=== PATIENT | female | born 1935 | race Caucasian/White ===

== ENCOUNTER → 2017-08-07 | Outpatient (CLI) | payer MEDICARE, OTHER ==
[~2017-08-07] MED LIST: ALLER-TEC D 5-1 EACH PO; ASPI81CH PO; ATOR40TA PO; Alaway10 ML; Bentyl20 MG PO; CETI10 PO; CETI5 PO; CHOL10002 PO; ESOM20 PO; FISH1000 PO; LISHYD2012 PO; LOPE2C PO; MULVITMINF PO; OMEP40CA12 PO; PROP30DR; PROP30DR OP; ROSU10TA PO; SIME40L
[2017-08-07 08:58] LABS: Source, Urine Clean Catch
[2017-08-07 10:03] LABS: Bilirubin, Urine Neg (Neg); Blood, Urine Neg (Neg); Glucose Qualitative, Urine Neg (Neg); Ketones, Urine Neg (Neg); Leukocyte Esterase, Urine 1+ (Neg); Nitrite, Urine Neg (Neg); Protein, Urine Neg (Neg); Urobilinogen, Urine NORM (Normal)
[2017-08-07 10:35] LABS: Appearance, Urine Clear (Clear); Color, Urine Yellow (P-Yellow)
[2017-08-07 10:41] LABS: Red Blood Cells, Urine 0-2 /hpf (0-2); White Blood Cells, Urine 25-50 /hpf (0-5)
[2017-08-07 10:42] LABS: Bacteria Few /hpf; Squamous Epithelial Cells Rare /hpf (Few)
== END ==
LOC: LAB SHORT 08:57 → LAB 08:57
PROVIDERS: Internal Medicine
DX: R32 Unspecified urinary incontinence (principal)
CPT/HCPCS: 81001